=== PATIENT | male | born 1945 | race Caucasian/White ===

== ENCOUNTER → 2022-05-02 | Outpatient (CLI) | payer MEDICARE, OTHER ==
--- NOTE | 2022-05-02 14:53 | Diagnostic Imaging Report ---
Indication: Lower extremity edema. FINDINGS: The lungs are hyperinflated suggesting air trapping. The pulmonary vascularity appears appropriate without evidence of pulmonary edema or failure. There is no effusion. There is no pneumothorax. Heart size appears normal. IMPRESSION: 1. Pulmonary hyperinflation suggesting air trapping. 2. No findings of edema or failure. Dictated by: Dictated on workstation # [id number]
== END ==
LOC: RAD 13:33
PROVIDERS: ATTEND Nurse Practitioner Family
DX: R60.0 Localized edema (principal)
CPT/HCPCS: 71046

== ENCOUNTER → 2022-05-05 | Outpatient (CLI) | payer MEDICARE, OTHER | LOC: CARD 14:00 | PROVIDERS: ATTEND Nurse Practitioner Family | DX: R60.0 Localized edema (principal) | CPT/HCPCS: 93306 ==

== ENCOUNTER → 2022-08-26 | Outpatient (CLI) | payer MEDICARE, OTHER ==
[~2022-08-26] MED LIST: GADOTERATE 0.5 MMOL/ML (CLARISCAN) 20 ML VIAL IV ONE
--- NOTE | 2022-08-26 14:49 | Diagnostic Imaging Report ---
PROCEDURE: MR imaging of the brain with and without contrast. TECHNIQUE: Multiplanar, multisequence MR imaging of the brain was performed with and without contrast. INDICATION: Altered mental status. COMPARISON: None. FINDINGS: Advanced parenchymal volume loss most greatly affects the parietal lobes. Moderate nonspecific T2 hyperintensities in the supratentorial white matter, compatible with chronic small vessel ischemic change. There are numerous tiny foci of hemosiderin deposition scattered throughout both cerebral and cerebellar hemispheres. No restricted water diffusion. No CT evidence of an acute territorial infarction. No abnormal intracranial enhancement. Normal morphology including the major midline structures, sella, posterior fossa and cerebellopontine angle. Normal intracranial flow voids. No hydrocephalus or extra-axial fluid collections. The orbits are negative. Paranasal sinuses and mastoids are clear. Normal bone marrow signal. IMPRESSION: 1. No acute intracranial MRI findings. No evidence of acute infarction or hemorrhage. 2. Several small foci of susceptibility artifact, consistent with hemosiderin deposition scattered throughout both cerebral and cerebellar hemispheres. 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 No evidence of acute intracranial hemorrhage. 3. Advanced parenchymal volume loss most greatly affects the parietal lobes. This pattern can be seen in Alzheimer's dementia. Dictated by: Dictated on workstation # [id number]
== END ==
LOC: RAD 12:50
PROVIDERS: ATTEND Physician Assistant
DX: G93.89 Other specified disorders of brain (principal); F03.90 Unspecified dementia, unspecified severity, without behavioral disturbance, psychotic disturbance, mood disturbance, and anxiety; I67.9 Cerebrovascular disease, unspecified; G31.9 Degenerative disease of nervous system, unspecified; R26.9 Unspecified abnormalities of gait and mobility; R41.3 Other amnesia
CPT/HCPCS: 70553